=== PATIENT | female | born 1995 ===

== ENCOUNTER 2018-01-30 08:41 | Emergency (ER) | payer MEDICAID ==
[2018-01-30 10:01] VITALS: TEMP 98.4; BMI 24.2
--- NOTE | 2018-01-30 10:10 | ED PDOC ---
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 Patient stated she slipped and twisted her right ankle while walking on [place] front of [place]. Patient denies other complains. Denies head injury, neck pain, knee pain, hip pain, or back pain. Time/Duration: Other (see hpi) Context: Home Past Medical History - Provider Review Nursing Documentation Reviewed: Yes - Pulmonary Hx Asthma: Yes - Psychiatric Hx Substance Use: No - Anesthesia Hx Anesthesia: No Family/Social History - Physician Review Nursing Documentation Reviewed: Yes Family/Social History: Other (noncontributory) Smoking Status: Never Smoked Hx Alcohol Use: No Hx Substance Use: No Allergies/Home Meds Allergies/Adverse Reactions: Allergies No Known Allergies Allergy (Verified 01/30/18 10:02) Review of Systems - Review of Systems Constitutional: Normal. absent: Fatigue, Weight Change, Fevers Eyes: Normal ENT: Normal Respiratory: Normal Cardiovascular: Normal Gastrointestinal: Normal Genitourinary Female: Normal Musculoskeletal: Other (right ankle pain) Skin: Normal Neurological: Normal Endocrine: Normal Hemo/Lymphatic: Normal Psychiatric: Normal Physical Exam Vital Signs Temp Pulse Resp BP Pulse Ox 01/30/18 10:01 98.4 F 80 16 126/75 95 Temperature: Afebrile Blood Pressure: Normal Pulse: Regular Respiratory Rate: Normal Appearance: Positive for: Well-Appearing, Non-Toxic, Comfortable Pain Distress: None Mental Status: Positive for: Alert and Oriented X 3 - Systems Exam Head: Present: Atraumatic, Normocephalic, Other (no raccoon sign. no garcia sign ) Pupils: Present: PERRL, Other (no hyphema) Extroacular Muscles: Present: EOMI Conjunctiva: Present: Normal Ears: Present: Normal, Other (no hemotympanum) Mouth: Present: Moist Mucous Membranes Nose (External): Present: Atraumatic Neck: Present: Normal Range of Motion, Trachea Midline. No: Meningeal Signs, MIDLINE TENDERNESS, Paraspinal Tenderness Respiratory/Chest: No: Tender to Palpation Abdomen: No: Tenderness Back: Present: Normal Inspection. No: CVA Tenderness, Midline Tenderness, Paraspinal Tenderness, Pain with Leg Raise Upper Extremity: Present: Normal Inspection, Normal ROM, Neurovascularly Intact , Capillary Refill < 2s. No: Cyanosis, Edema Lower Extremity: Present: Normal Inspection, NORMAL PULSES, Normal ROM, Tenderness ((+) mild tenderness on right lateral malleoulus, No swelling. Brooks test was negative. No posterior ankle tenderness. ), Neurovascularly Intact, Capillary Refill < 2 s. No: Edema, CALF TENDERNESS, Rosy's Sign, Swelling, Erythema, Deformity, Temperature Abnormalties Neurological: Present: GCS=15, CN II-XII Intact, Speech Normal, Motor Func Grossly Intact, Normal Sensory Function, Normal Cerebellar Funct Skin: Present: Warm, Dry, Normal Color. No: Rashes Psychiatric: Present: Alert, Oriented x 3, Normal Insight, Normal Concentration Medical Decision Making ED Course and Treatment: 01/30/18 10:50 Re-evaluation. Patient feels better. Discussed results and plan with patient who expresses understanding. All questions answered and there is agreement with the plan to discharge home with instructions. Patient stable for discharge. Return if symptoms persist or worsen. Patient was recommended RICE, and to remove britni bandage at bedtime. To f/u pmd in 1-2 days. Return to ED if pain worsen. Re-evaluation Time: 10:51 Reassessment Condition: Re-examined, Improved - RAD Interpretation Narrative RAD Interpretations (Text): 01/30/18 10:51 ankle x-rays: No Fx. Radiology Orders: 01/30/18 10:04 ANKLE RIGHT 3 VIEWS ROUTINE [RAD] Stat Disposition/Present on Arrival - Present on Arrival Any Indicators Present on Arrival: No History of DVT/PE: No History of Uncontrolled Diabetes: No Urinary Catheter: No History of Decub. Ulcer: No History Surgical Site Infection Following: None - Disposition Have Diagnosis and Disposition been Completed?: Yes Diagnosis: Ankle sprain Disposition: HOME/ ROUTINE Disposition Time: 10:51 Patient Plan: Discharge Patient Problems: Current Active Problems Problem Status Onset Ankle sprain Acute Condition: GOOD Discharge Instructions (ExitCare): Ankle Sprain Additional Instructions: Call private doctor for follow up visit in 1-2 days. Keep ankle elevated, ice rest, air cast, crutches. Return to emergency if pain worsen. Take medication as instructed with food Prescriptions: Famotidine [Pepcid] 40 mg PO DAILY #10 tablet Ibuprofen [Motrin] 400 mg PO Q8H PRN #20 tab PRN Reason: Pain, Severe (8-10) Referrals: David Escamilla [Primary Care Provider] - Follow up with primary Forms: [facility] (Danish), WORK NOTE
--- NOTE | 2018-01-30 11:01 | RAD ---
PROCEDURE: Right Ankle Radiographs. HISTORY: pain s/p fall COMPARISON: None FINDINGS: BONES: There is no acute displaced fracture or bone destruction. Bone alignment is normal. JOINTS: Normal. No osteoarthritis. Ankle mortise maintained. Talar dome intact SOFT TISSUES: Normal. OTHER FINDINGS: None. IMPRESSION: No acute displaced fracture or dislocation.
[2018-01-30 11:29] VITALS: BP 127/82; PULSE 82; RESP 16; O2SAT 97
== END 2018-01-30 11:18 | disposition home or self-care (01) ==
LOC: ED 08:41
DX: S93.401A Sprain of unspecified ligament of right ankle, initial encounter (principal); W00.0XXA Fall on same level due to ice and snow, initial encounter; Y93.01 Activity, walking, marching and hiking; Y92.89 Other specified places as the place of occurrence of the external cause